=== PATIENT | male | born 1980 | race Caucasian/White ===

== ENCOUNTER 2018-12-09 11:24 | Emergency (ER) | payer SELFPAY ==
[~2018-12-09] VITALS: Ht 172.7 cm; Wt 104.5 kg
[~2018-12-09 11:24] MED LIST: NORCO 325 MG-51 TAB PO; TUMS500 MG
[2018-12-09 11:42] VITALS: BP 134/77; TEMP 98.5
[2018-12-09 14:27] VITALS: PULSE 55
== END 2018-12-09 14:30 | disposition home or self-care (01) ==
LOC: COL.ER 11:24
DX: S61.411A Laceration without foreign body of right hand, initial encounter (principal); W26.8XXA Contact with other sharp object(s), not elsewhere classified, initial encounter; Y92.59 Other trade areas as the place of occurrence of the external cause